=== PATIENT | male | born 1970 | race African-American/Black ===

== ENCOUNTER 2019-09-08 00:19 | Emergency (ER) | payer SELFPAY ==
[2019-09-08] MEDS ORDERED: Lidocaine 1% 20 ML MDV ONE (01:20)
[2019-09-08] MEDS ORDERED: Adacel (T-DAP) 0.5 ML SYRINGE ONE (01:21)
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
== END 2019-09-08 00:27 ==
LOC: MADERS 00:19
DX: S61.210A Laceration without foreign body of right index finger without damage to nail, initial encounter (principal); S20.212A Contusion of left front wall of thorax, initial encounter; Z23 Encounter for immunization; F17.210 Nicotine dependence, cigarettes, uncomplicated; Y04.0XXA Assault by unarmed brawl or fight, initial encounter
CPT/HCPCS: 71046; 71250; 90715; J2001